=== PATIENT | male | born 1990 | race Caucasian/White ===

== ENCOUNTER 2020-03-18 12:42 | Emergency (ER) | payer OTHER ==
[~2020-03-18] VITALS: Ht 172.7 cm; Wt 62.6 kg
[2020-03-18 12:48] VITALS: BP 127/76
--- NOTE | 2020-03-18 12:49 | NUR ---
Dr. Hough is evaluating the patient while on the ambulance gurney.
[2020-03-18] MEDS ORDERED: NACL 0.9% 1,000 ML IV ONE (13:00)
--- NOTE | 2020-03-18 13:20 | NUR ---
PD AT BEDSIDE.
--- NOTE | 2020-03-18 13:38 | NUR ---
LAB AT BEDSIDE.
[2020-03-18 13:48] LABS: APPEARANCE,URINE CLEAR (CLEAR); BILIRUBIN,URINE NEGATIVE (NEGATIVE); BLOOD, URINE NEGATIVE (NEGATIVE); COLOR,URINE YELLOW (YELLOW); LEUKOCYTE ESTERASE ,URINE NEGATIVE (NEGATIVE); NITRITE, URINE NEGATIVE (NEGATIVE); PH,URINE 7.5 (5.0-9.0); UGLUCOSE NEGATIVE (NEGATIVE)
--- NOTE | 2020-03-18 13:49 | NUR ---
29 Y/M PT BIBA FOR ALTERED LEVEL OF CONSCIOUSNESS FOUND BY PD PASSED OUT IN HIS CAR AT A [employer] 35 MINS AGO. PER EMS, PT WAS A&OX2 IN SCENE. PT REPORTS THE PD WAS CALLED BECAUSE BYSTANDERS REPORTED HE WAS "PASSED OUT DOING DRUGS IN HIS CAR WITH A NEEDLE IN HIS ARM." PT REPORTS HE WAS IN HIS CAR, DENIES DRUG USE OR ALCOHOL AT THIS TIME. PT TOOK HEROIN TWO DAYS AGO. PERRL INTACT. PT A &O X 4. RR EVEN AND UNLABORED. DENEIS CHEST PAIN, PT DENIES DIZZINESS OR HAVING ANY PAIN AT THIS TIME. -HIT HIS HEAD. PT DENIES SI OR DTO. PMH: DENIES MEDS: DENIES
[2020-03-18 13:52] LABS: RBC,URINE 0-5 /HPF (0-5); WBC,URINE 0-5 /HPF (0-5)
[2020-03-18 14:02] LABS: BARBITURATE, URINE NEGATIVE ng/ml (NEG <=200); BENZODIAZEPINE, URINE POSITIVE ng/mL (NEG <=200); CANNABINOID, URINE NEGATIVE ng/mL (NEG <=50); COCAINE, URINE NEGATIVE ng/mL (NEG <=300); OPIATE, URINE NEGATIVE ng/mL (NEG <=2000); PHENCYCLIDINE SCREEN,URINE NEGATIVE ng/mL (NEG <=25)
--- NOTE | 2020-03-18 14:03 | NUR ---
Patient does not wish to proceed with medical care recommended by DR. BERNAL. Patient given information related to possible complications, up to and including , which could occur as a result of leaving hospital at this time. Patient verbalizes understanding of risks involved leaving against medical advice. Patient has signed AMA form.
[2020-03-18 14:05] VITALS: BP 127/76
== END 2020-03-18 14:03 | disposition left against medical advice (07) ==
LOC: MED 12:42
DX: F15.10 Other stimulant abuse, uncomplicated (principal); F13.10 Sedative, hypnotic or anxiolytic abuse, uncomplicated; F11.90 Opioid use, unspecified, uncomplicated; L03.113 Cellulitis of right upper limb; F17.200 Nicotine dependence, unspecified, uncomplicated; Z71.6 Tobacco abuse counseling
CPT/HCPCS: 36415; 80305; 81001; 87040; 99283